=== PATIENT | female | born 1950 | race Caucasian/White ===

== ENCOUNTER 2018-08-11 11:56 | Day surgery (SDC) | payer MEDICARE ==
[2018-08-11] VITALS (10 sets, daily range): BP systolic 110–138; BP diastolic 46–81
[~2018-08-11] VITALS: Ht 165.1 cm; Wt 97.9 kg
[2018-08-11] MEDS ORDERED: diphenhydrAMINE 25mg capsule PO ONE (12:20)
[2018-08-11] MEDS ORDERED: sod bicarbonate 150mEq in D5W 1,150 ML IV ONE (12:20)
[2018-08-11] MEDS ORDERED: SYN0.088T PO (12:38)
[2018-08-11] MEDS ORDERED: TIZA4CAP PO (12:38)
[2018-08-11] MEDS ORDERED: POTA20TA10 PO (12:38)
[2018-08-11] MEDS ORDERED: ROSU40TA PO (12:38)
[2018-08-11] MEDS ORDERED: RAMI10CA69 PO (12:38)
[2018-08-11] MEDS ORDERED: ASPI-1265 PO (12:38)
[2018-08-11] MEDS ORDERED: CARV-50 PO (12:38)
[2018-08-11] MEDS ORDERED: LACT1CAP65 PO (12:38)
[2018-08-11] MEDS ORDERED: CINN500C2 PO (12:38)
[2018-08-11] MEDS ORDERED: LORA-835 PO (12:38)
[2018-08-11] MEDS ORDERED: FURO-150 PO (12:38)
[2018-08-11] MEDS ORDERED: FLUO10CA51 PO (12:38)
[2018-08-11] MEDS ORDERED: LORA1TAB PO (12:38)
[2018-08-11] MEDS ORDERED: DIGO250T PO (12:38)
[2018-08-11 13:49] LABS: BASOPHILS % (AUTO) 0.3 % (0-1); EOSINOPHILS # (AUTO) 0.3 X10'3 (0-0.9); EOSINOPHILS % (AUTO) 4.1 % (0-6); LYMPHOCYTES # (AUTO) 1.6 X10'3 (1.1-4.8); LYMPHOCYTES % (AUTO) 23.2 % (21-51); MEAN CORPUSCULAR HEMOGLOBIN 28.7 PG (27.0-31.0); MEAN PLATELET VOLUME 9.2 FL (7.4-10.4); MONOCYTES # (AUTO) 0.4 X10'3 (0-0.9); MONOCYTES % (AUTO) 5.9 % (2-12); NEUTROPHILS # (AUTO) 4.5 X10'3 (1.8-7.7); NEUTROPHILS % (AUTO) 66.5 % (42-75); PRE OP HEMOGLOBIN 13.9 g/dL (12.0-16.0); PRE OP PLATELET COUNT 172 X10'3 (140-440); RED BLOOD COUNT 4.83 X10'6 (4.20-5.60); RED CELL DISTRIBUTION WIDTH 13.6 % (11.5-14.5)
[2018-08-11 14:02] LABS: PRE OP PARTIAL THROMB. TIME 26 SECONDS (22-35); PROTHROMBIN TIME 10.3 SECONDS (9.0-12.0)
[2018-08-11 14:03] LABS: ALBUMIN 3.2 G/DL (3.4-5.0); ANION GAP 9 (8-16); BLOOD UREA NITROGEN 16 MG/DL (7-18); CALCIUM 8.7 MG/DL (8.5-10.1); CHLORIDE 105 MMOL/L (99-107); CREATININE 0.94 MG/DL (0.40-0.90); GLUCOSE 137 MG/DL (70-104); MAGNESIUM 1.7 MG/DL (1.5-2.4); POTASSIUM 3.9 MMOL/L (3.5-5.1); SODIUM 141 MMOL/L (135-145); TOTAL CARBON DIOXIDE 27.1 MMOL/L (24-32); eGFR 60 ML/MIN
[2018-08-11] MEDS ORDERED: iohexol 350MG/ML 100ml bottle IV ONE (14:37)
[2018-08-11] MEDS ORDERED: LIDOcaine 1% 30ml preserv. free vial ONE (14:37)
[2018-08-11] MEDS ORDERED: iohexol 350 MG/ML 50ML vial IV ONE (14:37)
[2018-08-11] MEDS ORDERED: fentaNYL/PF 50MCG/1 ML 2ML syringe ONE (15:02)
[2018-08-11] MEDS ORDERED: midazolam 2 mg/2 ml injection ONE ×2 (15:02→15:12)
[2018-08-11] MEDS ORDERED: heparin 1,000unit/ml 10ml vial 10 ML ONE (15:24)
[2018-08-11] MEDS ORDERED: clopidogrel 300mg tablet ONE (15:35)
== END 2018-08-11 20:30 | disposition home or self-care (01) ==
LOC: SSTAY O 11:56
PROVIDERS: ATTEND Internal Medicine Cardiovascular Disease
DX: I25.10 Atherosclerotic heart disease of native coronary artery without angina pectoris (principal); I25.2 Old myocardial infarction; E78.5 Hyperlipidemia, unspecified; E11.9 Type 2 diabetes mellitus without complications; E03.9 Hypothyroidism, unspecified; G47.33 Obstructive sleep apnea (adult) (pediatric); I48.0 Paroxysmal atrial fibrillation; I11.0 Hypertensive heart disease with heart failure; I50.9 Heart failure, unspecified; Z86.73 Personal history of transient ischemic attack (TIA), and cerebral infarction without residual deficits; Z86.74 Personal history of sudden cardiac arrest; Z87.891 Personal history of nicotine dependence; Z87.09 Personal history of other diseases of the respiratory system; Z90.49 Acquired absence of other specified parts of digestive tract; Z72.89 Other problems related to lifestyle; Z79.82 Long term (current) use of aspirin; Z90.710 Acquired absence of both cervix and uterus; Z90.722 Acquired absence of ovaries, bilateral; Z88.1 Allergy status to other antibiotic agents; Z79.899 Other long term (current) drug therapy; Z98.890 Other specified postprocedural states; Z88.8 Allergy status to other drugs, medicaments and biological substances; Z83.3 Family history of diabetes mellitus; Z82.49 Family history of ischemic heart disease and other diseases of the circulatory system; Z83.6 Family history of other diseases of the respiratory system
CPT/HCPCS: 36415; 80048; 82948; 83735; 85025; 85610; 85730; 93005; 93458; 99152; 99153; A6257; C1760; C1874; C9600; J1644; J2250; J3010; J3490; Q0163; Q9967; A4620; C1769; C1894

== ENCOUNTER 2021-04-14 09:36 | Day surgery (SDC) | payer MEDICARE ==
[2021-04-14] VITALS (15 sets, daily range): BP systolic 137–182; BP diastolic 40–102
[~2021-04-14] VITALS: Ht 165.1 cm; Wt 115.1 kg
[~2021-04-14 09:36] MED LIST: ASPI-1265 PO; CINN500C2 PO; CLOP75TA33 PO; DIGO250T PO; FLUO10CA51 PO; FURO-150 PO; LACT1CAP65 PO; LORA-835 PO; LORA1TAB PO; METO-395 PO; POTA20TA10 PO; RAMI10CA69 PO; RANI150T8 PO; ROSU40TA PO; SYN0.088T PO; TIZA4CAP PO
[2021-04-14] MEDS ORDERED: normal saline 1,000 ML IV SCH (10:05)
[2021-04-14] MEDS ORDERED: diphenhydrAMINE 25mg capsule PO PRN (10:05)
[2021-04-14] MEDS ORDERED: SACU1TAB7 PO (10:53)
[2021-04-14] MEDS ORDERED: TIZA-189 PO (10:54)
[2021-04-14] MEDS ORDERED: TIZA4CAP PO (10:55)
[2021-04-14 10:56] LABS: BASOPHILS % (AUTO) 0.6 % (0-1); EOSINOPHILS # (AUTO) 0.1 X10'3 (0-0.9); EOSINOPHILS % (AUTO) 2.5 % (0-6); HEMATOCRIT 43.7 % (35.0-45.0); HEMOGLOBIN 14.5 g/dl (12.0-16.0); LYMPHOCYTES # (AUTO) 1.1 X10'3 (1.1-4.8); LYMPHOCYTES % (AUTO) 21.9 % (21-51); MEAN CORPUSCULAR HEMOGLOBIN 28.4 PG (27.0-31.0); MEAN CORPUSCULAR HGB CONC 33.2 g/dL (33.0-36.5); MEAN CORPUSCULAR VOLUME 85.6 FL (78-98); MEAN PLATELET VOLUME 8.8 FL (7.4-10.4); MONOCYTES # (AUTO) 0.3 X10'3 (0-0.9); NEUTROPHILS # (AUTO) 3.4 X10'3 (1.8-7.7); PLATELET COUNT 142 X10'3 (140-440); RED BLOOD COUNT 5.11 X10'6 (4.20-5.60); RED CELL DISTRIBUTION WIDTH 15.5 % (11.5-14.5); WHITE BLOOD COUNT 4.9 X10'3 (4.5-11.0)
[2021-04-14] MEDS ORDERED: AMIO200T61 PO (10:56)
[2021-04-14 11:05] LABS: ALBUMIN 3.4 G/DL (3.4-5.0); ANION GAP 10 (8-16); BLOOD UREA NITROGEN 21 MG/DL (7-18); BUN/CREATININE RATIO 20.2 (6.6-38.0); CALCIUM 8.6 MG/DL (8.5-10.1); CHLORIDE 104 MMOL/L (99-107); CREATININE 1.04 MG/DL (0.40-0.90); GLUCOSE 118 MG/DL (70-104); MAGNESIUM 1.8 MG/DL (1.5-2.4); POTASSIUM 4.2 MMOL/L (3.5-5.1); SODIUM 140 MMOL/L (135-145); TOTAL CARBON DIOXIDE 26.4 MMOL/L (24-32); eGFR 53 ML/MIN
[2021-04-14] MEDS ORDERED: BIOT10004 PO (11:16)
[2021-04-14] MEDS ORDERED: LIDOcaine 1% (10mg/ml)w/preservative injection 20ml MDV ONE (11:54)
[2021-04-14] MEDS ORDERED: midazolam 1 mg/ML 2ml injection ONE ×3 (11:54→13:04)
[2021-04-14] MEDS ORDERED: iohexol 350 MG/ML 50ML vial IV ONE (11:54)
[2021-04-14] MEDS ORDERED: fentaNYL/PF 50MCG/1 ML 2ML syringe ONE (11:54)
[2021-04-14] MEDS ORDERED: iohexol 350MG/ML 100ml bottle IV ONE (11:54)
[2021-04-14] MEDS ORDERED: heparin 1,000unit/ml 10ml vial 10 ML ONE (11:54)
[2021-04-14] MEDS ORDERED: HYDROmorphone 1 mg/ml syringe ONE ×2 (13:04→13:23)
[2021-04-14] MEDS ORDERED: LIDOcaine 2% 10ml TOPICAL JELLY (Urojet) ONE (13:09)
[2021-04-14] MEDS ORDERED: proCHLORperazine 10 MG/2 ml inj IV PRN (14:05)
[2021-04-14] MEDS ORDERED: ondansetron/PF 4mg/2ml inj IV PRN (14:05)
[2021-04-14] MEDS ORDERED: normal saline 1000ml 1,000 ML IV SCH (14:05)
[2021-04-14] MEDS ORDERED: acetaminophen 325mg tablet PO PRN (14:05)
[2021-04-14] MEDS ORDERED: HYDROcodone/acetaminophen 5mg/325mg tablet PO PRN (14:05)
[2021-04-14] MEDS ORDERED: HYDROcodone/acetaminophen 10/325mg tab PO PRN (14:05)
== END 2021-04-14 17:40 | disposition home or self-care (01) ==
LOC: SSTAY O 09:36
PROVIDERS: ATTEND Internal Medicine Cardiovascular Disease
DX: I25.118 Atherosclerotic heart disease of native coronary artery with other forms of angina pectoris (principal); I25.2 Old myocardial infarction; I25.5 Ischemic cardiomyopathy; I44.7 Left bundle-branch block, unspecified; I47.2 Ventricular tachycardia; I48.0 Paroxysmal atrial fibrillation; I49.01 Ventricular fibrillation; I10 Essential (primary) hypertension; E78.5 Hyperlipidemia, unspecified; E11.9 Type 2 diabetes mellitus without complications; G47.30 Sleep apnea, unspecified; E03.9 Hypothyroidism, unspecified; Z95.5 Presence of coronary angioplasty implant and graft; Z95.810 Presence of automatic (implantable) cardiac defibrillator; Z79.01 Long term (current) use of anticoagulants; Z79.82 Long term (current) use of aspirin; Z88.1 Allergy status to other antibiotic agents; Z88.8 Allergy status to other drugs, medicaments and biological substances; Z87.891 Personal history of nicotine dependence
CPT/HCPCS: 36415; 80048; 83735; 85025; 85610; 93005; 93458; 99152; 99153; C1760; C1769; C1894; J1170; J1644; J2001; J2250; J3010; J7030; Q0163; Q9967; A4620; A6258

== ENCOUNTER 2021-04-16 14:52 | Emergency (ER) | payer MEDICARE ==
[~2021-04-16] VITALS: Ht 165.1 cm; Wt 109.3 kg
[~2021-04-16 14:52] MED LIST changes: +AMIO200T61 PO; +BIOT10004 PO; -DIGO250T PO; -LORA-835 PO; -RAMI10CA69 PO; -RANI150T8 PO; +SACU1TAB7 PO; +TIZA-189 PO
[2021-04-16 18:08] VITALS: BP 173/113
--- NOTE | 2021-04-16 18:30 | NUR ---
Assumed care of patient- report recieved from Rony FENG.
[2021-04-16] MEDS ORDERED: iohexol 300mg/ml 100ml inj. ONE (18:50)
[2021-04-16 19:10] LABS: PARTIAL THROMBOPLASTIN TIME 25 SECONDS (22-32)
--- NOTE | 2021-04-16 19:10 | NUR ---
Patient ambulatory to and from bathroom with steady gait.
[2021-04-16 19:11] LABS: BASOPHILS % (AUTO) 0.5 % (0-1); EOSINOPHILS # (AUTO) 0.2 X10'3 (0-0.9); EOSINOPHILS % (AUTO) 3.3 % (0-6); HEMATOCRIT 41.9 % (35.0-45.0); HEMOGLOBIN 13.9 g/dl (12.0-16.0); LYMPHOCYTES # (AUTO) 1.3 X10'3 (1.1-4.8); LYMPHOCYTES % (AUTO) 22.8 % (21-51); MEAN CORPUSCULAR HEMOGLOBIN 28.4 PG (27.0-31.0); MEAN CORPUSCULAR HGB CONC 33.2 g/dL (33.0-36.5); MEAN CORPUSCULAR VOLUME 85.7 FL (78-98); MEAN PLATELET VOLUME 9.1 FL (7.4-10.4); MONOCYTES # (AUTO) 0.5 X10'3 (0-0.9); NEUTROPHILS # (AUTO) 3.7 X10'3 (1.8-7.7); NEUTROPHILS % (AUTO) 65.4 % (42-75); PLATELET COUNT 153 X10'3 (140-440); RED CELL DISTRIBUTION WIDTH 15.6 % (11.5-14.5); WHITE BLOOD COUNT 5.6 X10'3 (4.5-11.0)
[2021-04-16 19:50] LABS: ALANINE AMINOTRANSFERASE 44 U/L (12-78); ALBUMIN 3.2 G/DL (3.4-5.0); ALKALINE PHOSPHATASE 117 IU/L (46-116); ANION GAP 7 (8-16); ASPARTATE AMINO TRANSFERASE 24 U/L (10-37); BILIRUBIN,TOTAL 0.5 MG/DL (0.1-1.0); BLOOD UREA NITROGEN 21 MG/DL (7-18); BUN/CREATININE RATIO 17.8 (6.6-38.0); CALCIUM 8.4 MG/DL (8.5-10.1); CHLORIDE 105 MMOL/L (99-107); CREATININE 1.18 MG/DL (0.40-0.90); GLUCOSE 132 MG/DL (70-104); SODIUM 143 MMOL/L (135-145); TOTAL CARBON DIOXIDE 31.1 MMOL/L (24-32); TOTAL PROTEIN 6.3 G/DL (6.4-8.2); eGFR 46 ML/MIN
== END 2021-04-16 21:25 | disposition home or self-care (01) ==
LOC: ER 14:52
DX: S30.1XXA Contusion of abdominal wall, initial encounter (principal); I97.610 Postprocedural hemorrhage of a circulatory system organ or structure following a cardiac catheterization; I25.2 Old myocardial infarction; Z95.0 Presence of cardiac pacemaker; J44.9 Chronic obstructive pulmonary disease, unspecified; Z88.1 Allergy status to other antibiotic agents; Z88.8 Allergy status to other drugs, medicaments and biological substances; Z79.82 Long term (current) use of aspirin; Z79.899 Other long term (current) drug therapy; X58.XXXA Exposure to other specified factors, initial encounter; Y93.9 Activity, unspecified; Y92.89 Other specified places as the place of occurrence of the external cause; Y99.8 Other external cause status
CPT/HCPCS: 36415; 74177; 80053; 84145; 85025; 85610; 85730; 93926; 99285; Q9967